=== PATIENT | female | born 1950 | race Caucasian/White ===

== ENCOUNTER 2017-09-28 19:09 | Emergency (ER) | payer OTHER, SELFPAY ==
[2017-09-28 19:13] VITALS: BP 188/101; PULSE 72; RESP 14; TEMP 37; O2SAT 96; BMI 24.7
--- NOTE | 2017-09-28 19:17 | DI.RAD.S_ITS ---
PROCEDURE: XR FINGER LT MIN 2V INDICATIONS: crush injury TECHNIQUE: AP hand, 2 views of the third finger(s) acquired. COMPARISON: None. FINDINGS: Bones: There is a minimally displaced fracture at the base of the third distal phalanx. There is no appreciable intra-articular extension. Ulnar styloid fracture is present, appearing chronic. Soft tissues: No suspicious soft tissue calcifications. IMPRESSION: Minimally displaced distal third phalanx fracture. Dictated by: Andreea Vides M.D. on 09/28/2017 at 21:01 Approved by: Andreea Vides M.D. on 09/28/2017 at 21:01
--- NOTE | 2017-09-28 20:58 | PC.NURSE ---
Updated on wait. Pt and upset at wait. X ray has been completed. They are next to come into the ED. Agreed to wait.
[2017-09-28] MEDS: CEFAZOLIN 2 GM/100 ML FROZ.PIGGY IV (22:16)
[2017-09-29 00:30] VITALS: BP 187/93; PULSE 64; RESP 16; TEMP 36.7; O2SAT 95
--- NOTE | 2017-09-29 01:45 | ED_ITS ---
HPI - Extremity Injury (Upper) <SARANYA Vivar - Last Filed: 09/29/17 01:45> General Chief Complaint: Extremity Injury, Upper Stated Complaint: SMASHED MIDDLE FINGER LEFT HAND Time Seen by Provider: 09/28/17 21:30 Source: patient and family Mode of arrival: ambulatory Limitations: no limitations History of Present Illness HPI narrative: Patient presents after crushing her left middle finger in between still plates on a boat. She states her range of motion was intact. She states that she had a laceration on the bottom of her finger. She washed out with tap water. She states her tetanus was updated this past winter. She denies any other injury. Related Data Home Medications Medication Instructions Recorded Confirmed aspirin 81 mg PO DAILY 09/28/17 09/28/17 metoprolol succinate 25 mg PO DAILY 09/28/17 09/28/17 simvastatin 40 mg PO QPM 09/28/17 09/28/17 Previous Rx's Medication Instructions Recorded cephalexin 500 mg PO TID #30 cap 09/28/17 Allergies Allergy/AdvReac Type Severity Reaction Status Date / Time Sulfa (Sulfonamide Allergy Intermediate Hives Verified 09/28/17 19:15 Antibiotics) Review of Systems <SARANYA Vivar - Last Filed: 09/29/17 01:45> Review of Systems GENERAL: Denies chills, fatigue, malaise, fever, sweats. HEENT: Denies sinus pain, ear pain, sore throat, difficulty swallowing, dizziness. RESPIRATORY: Denies dyspnea, cough, wheezing, hemoptysis, sputum. CARDIOVASCULAR: Denies chest pain, palpitations, orthopnea, edema, GASTROINTESTINAL: Denies nausea, vomiting, abdominal pain, diarrhea, constipation, melena. : Denies dysuria, frequency, incontinence, hematuria, urinary retention. MUSCULOSKELETAL: See HPI SKIN: See HPI NEUROLOGIC: Denies weakness, headache, numbness, change in speech, confusion, seizures, incoordination. PSYCHIATRIC: No concerning psychosocial issues. 12 point review of systems is negative except for those stated above Exam <SARANYA Vivar - Last Filed: 09/29/17 01:45> Narrative Exam Narrative: GENERAL: This is a well-nourished, well-developed patient, with at bedside HEAD: Atraumatic. Normocephalic. No temporal or scalp tenderness. EYES: Pupils equal round and reactive. Extraocular motions intact. No scleral icterus. No injection or drainage. ENT: Nose without bleeding, purulent drainage or septal hematoma. Throat without erythema, tonsillar hypertrophy or exudate. Uvula midline. Airway patent. NECK: Trachea midline. No JVD or lymphadenopathy. Supple, nontender, no meningeal signs. CARDIOVASCULAR: Regular rate and rhythm without murmurs, gallops, or rubs. RESPIRATORY: Clear to auscultation. Breath sounds equal bilaterally. No wheezes , rales, or rhonchi. EXTREMITIES: Patient has full range of motion of left middle finger. BACK: Nontender without deformity or crepitance. No flank tenderness. NEURO: AOx3. SKIN: 1.5 cm v-shaped laceration distal phalanx of left middle finger on the palmar side. Subcutaneous tissue is present. No obvious foreign bodies. No visible tendon or bone. Initial Vital Signs Initial Vital Signs: Vital Signs Temperature 98.6 F 09/28/17 19:13 Pulse Rate 72 09/28/17 19:13 Respiratory Rate 14 09/28/17 19:13 Blood Pressure 188/101 H 09/28/17 19:13 Pulse Oximetry 96 09/28/17 19:13 <Mikala Garcia DO - Last Filed: 09/29/17 04:07> Initial Vital Signs Initial Vital Signs: Vital Signs Temperature 98.6 F 09/28/17 19:13 Pulse Rate 72 09/28/17 19:13 Respiratory Rate 14 09/28/17 19:13 Blood Pressure 188/101 H 09/28/17 19:13 Pulse Oximetry 96 09/28/17 19:13 Procedures <CHAIM Vivar-BC - Last Filed: 09/29/17 01:45> Laceration Repair Laceration 1: Site: upper extremity Side (If applicable): left Size (cm): 1.5 Description: stellate and clean Depth: simple, single layer Local Anesthetic: lidocaine 1% (digital block) Amount of anesthesia used (mL): 2 Pre-repair: wound explored, irrigated extensively (500 cc normal saline and wound cleansed with chlorhexidine.) and deep structures intact Skin layer closed with: nylon Size (cm): 4-0 Number of sutures: 4 Technique: simple, interrupted Orthopedic Splinting/Casting Injury #1: Side: left Upper Extremity Injury Location: finger Additional Comments: pms intact Course <KORY Vivar - Last Filed: 09/29/17 01:45> Additional Information: Patient presented with chief complaint of laceration finger injury. Given the laceration and fracture evident on x-ray, she was given 2 g of Ancef. She was placed on Keflex after suture completion. Her laceration was closed as documented in procedural notes. Her closure occurred without incident. She tolerated it well. I spoke with Dr. Diaz from Orthopedics who kindly viewed the films and suggested follow-up with them. Discussed at length with patient follow up with signs and symptoms of infection including fever, nausea vomiting or diarrhea. Given exposure to saltwater laceration, gave explicit directions to follow up if develops fever or any acute illness. Also discussed monitoring for pus from the wound site as well as spreading erythema. Patient no questions or concerns upon discharge. Orders Ordered: ED Orders 09/28/17 19:17 XR finger LT min 2V Stat Discontinued Medications Cefazolin Sodium/Dextrose (Ancef) 2 gm in 100 mls @ 200 mls/hr IV NOW ONE Stop: 09/28/17 22:44 Last Infusion: 09/28/17 22:49 Dose: 0 mls/hr Admin: 09/28/17 22:16 Dose: 200 mls/hr Vital Signs - 8 hr 09/29/17 00:30 Temperature 98.0 F Pulse Rate 64 Respiratory Rate 16 Blood Pressure 187/93 H Pulse Oximetry 95 <Mikala Garcia DO - Last Filed: 09/29/17 04:07> Orders Ordered: ED Orders 09/28/17 19:17 XR finger LT min 2V Stat Discontinued Medications Cefazolin Sodium/Dextrose (Ancef) 2 gm in 100 mls @ 200 mls/hr IV NOW ONE Stop: 09/28/17 22:44 Last Infusion: 09/28/17 22:49 Dose: 0 mls/hr Admin: 09/28/17 22:16 Dose: 200 mls/hr Vital Signs - 8 hr 09/29/17 00:30 Temperature 98.0 F Pulse Rate 64 Respiratory Rate 16 Blood Pressure 187/93 H Pulse Oximetry 95 MDM - Extremity Injury (Upper) <KORY Vivar - Last Filed: 09/29/17 01:45> Imaging Data left finger xray: Radiologist's impression: View Report History [address] [address] XRay Report Signed Patient: BECCA CR MR#: [id number] : 1950 Acct:[id number] Age/Sex: 66 / F Date of Service: 09/28/17 Loc: ED Accession Number: [id number] Procedure: XR finger LT min 2V Ordering Provider: Ester Ordaz- PROCEDURE: XR FINGER LT MIN 2V INDICATIONS: crush injury TECHNIQUE: AP hand, 2 views of the third finger(s) acquired. COMPARISON: None. FINDINGS: Bones: There is a minimally displaced fracture at the base of the third distal phalanx. There is no appreciable intra-articular extension. Ulnar styloid fracture is present, appearing chronic. Soft tissues: No suspicious soft tissue calcifications. IMPRESSION: Minimally displaced distal third phalanx fracture. Dictated by: Andreea Vides M.D. on 09/28/2017 at 21:01 Approved by: Andreea Vides M.D. on 09/28/2017 at 21:01 [facility] Narrative Medical decision making narrative: The patient had a crush injury to her finger. Her laceration was closed as per documentation. Given the laceration combined with a fracture on x-ray, I placed her on antibiotics as well as give her IV Ancef for concern of an open fracture. Expert consultation was obtained from Orthopedics. A referrals placed to [facility]. Patient no questions or concerns upon discharge. Discussed at length follow-up signs of infection, signs of acute illness given wound exposure to saltwater. Referral made to Orthopedics. Patient has no questions or concerns and states she will follow up in approximately a week for for suture removal. Discharge Plan Departure Patient Disposition: Home, Self-Care Clinical Impression: Laceration, Finger fracture, left Discharge Date/Time: 09/29/17 00:32 Interventions: ED Discharge Assessment Last Done: 09/29/17 00:30 Instructions: DI for Finger Fracture, DI for Laceration Repair -- Finger Activity Restrictions/Additional Instructions: Monitor your laceration for signs and symptoms of infection including redness, pus, decreased range of motion fevers nausea vomiting diarrhea. Follow up in about a week for suture removal. Given the nature of your laceration I placed you on an antibiotic. Given that you had IV antibiotics he can started tomorrow. Please take a probiotic or yogurt to help prevent antibiotic associated diarrhea. Please follow-up with Orthopedics. I have placed of referral to [facility] for you. Prescriptions: New cephalexin 500 mg capsule 500 mg PO TID Qty: 30 RF: 0 No Action simvastatin 40 mg Tablet 40 mg PO QPM RF: 0 aspirin 81 mg Tablet,Chewable 81 mg PO DAILY RF: 0 metoprolol succinate 25 mg Tablet Extended Release 24 Hr 25 mg PO DAILY RF: 0 Referrals: [facility] [Outside] <Mikala Garcia DO - Last Filed: 09/29/17 04:07> Cosign ED Attending Alfreditoature Attestation: I was immediately available in the department for consultation. Documentation has been reviewed. I agree with assessment and plan.
== END 2017-09-29 00:32 | disposition home or self-care (01) ==
PROVIDERS: Emergency Provider Nurse Practitioner Family
DX: S62.62 Displaced fracture of middle phalanx of finger (principal); W23.0XXA Caught, crushed, jammed, or pinched between moving objects, initial encounter
CPT/HCPCS: 12001; 29130; 64450; 73140; 96365; 99283; 99284; J0690